=== PATIENT | male | born 1960 | race Caucasian/White ===

== ENCOUNTER 2019-06-04 12:24 | Emergency (ER) | payer OTHER ==
--- NOTE | 2019-06-04 13:07 | EDM.PDOC ---
ED HPI GENERAL MEDICAL PROBLEM - General Chief Complaint: Lower Extremity Injury/Pain Stated Complaint: R ANKLE INJURY Time Seen by Provider: 06/04/19 12:50 Source of Information: Reports: Patient History Limitations: Reports: No Limitations - History of Present Illness INITIAL COMMENTS - FREE TEXT/NARRATIVE: 58-year-old male with a history of significant right ankle and foot injury from an auger 2 years ago that needed reconstructive surgery, has been slowly improving but today after bumping his head on a beam and mis-stepping, he turned his right ankle and now is having significant right ankle pain. There is always some mild to moderate swelling. He wants to make sure there is no fracture. Onset: Sudden Duration: Hour(s): (Within the last hour) Location: Reports: Lower Extremity, Right Associated Symptoms: Reports: No Other Symptoms Right Ankle Pain Score (Numeric/FACES): 10 - Related Data Allergies Allergy/AdvReac Type Severity Reaction Status Date / Time Penicillins Allergy Cannot Verified 06/04/19 12:57 Remember voriconazole Allergy Chest Pain Verified 06/04/19 12:57 Home Meds: Home Meds NK [No Known Home Meds] 06/04/19 [History] Past Medical History HEENT History: Reports: Impaired Vision - Past Surgical History HEENT Surgical History: Reports: Tonsillectomy Musculoskeletal Surgical History: Reports: Other (See Below) Other Musculoskeletal Surgeries/Procedures:: ankle surgery after a auger accident to right ankle. Social & Family History - Tobacco Use Smoking Status *Q: Never Smoker - Caffeine Use Caffeine Use: Reports: Coffee - Recreational Drug Use Recreational Drug Use: No Review of Systems - Review of Systems Review Of Systems: See Below Eyes: Reports: No Symptoms Respiratory: Reports: No Symptoms Cardiovascular: Reports: No Symptoms Skin: Reports: Other (A small open wound on the distal anterior lower leg from past skin grafting is healing by secondary intention.) Neurological: Reports: Paresthesia (He does have some chronic numbness from his past injury to his foot) ED EXAM, GENERAL - Physical Exam Exam: See Below Exam Limited By: No Limitations General Appearance: Alert, No Apparent Distress (Patient is uncomfortable but not distressed) Head: Atraumatic Respiratory/Chest: No Respiratory Distress Extremities: Other (Exam is otherwise limited to the right lower extremity. He has significant discomfort with palpation of the right lower leg just above the ankle, the malleoli are nontender. He has a bandage over the lower leg due to the chronic small healing superficial skin ulcer. This was not removed.) Course - Vital Signs Last Recorded V/S: Last Vital Signs Temp 97.8 F 06/04/19 12:53 Pulse 75 06/04/19 12:53 Resp 18 06/04/19 12:53 BP 151/94 H 06/04/19 12:53 Pulse Ox 99 06/04/19 12:53 - Orders/Labs/Meds Orders: Active Orders 24 hr Category Date Time Status DME for Discharge [COMM] Stat Oth 06/04/19 14:31 Ordered - Re-Assessments/Exams Free Text/Narrative Re-Assessment/Exam: 06/04/19 14:28 An x-ray of the right lower leg and ankle was obtained and shows a spiral fracture of the fibula and tibia. The ankle mortise is intact, and the malleoli are not involved. He lives near [place], and would like [facility] to take care of this so I discussed the situation with Dr. Drew, orthopedist analytical consultant and he was very helpful. Patient will be placed in an orthopedic boot, nonweightbearing with crutches, and see Dr. Drew tomorrow at the orthopedic clinic at 12:00. Departure - Departure Time of Disposition: 14:42 Disposition: Home, Self-Care 01 Clinical Impression: Fracture of right tibia and fibula Qualifiers: Encounter type: initial encounter Fracture type: closed Qualified Code(s): S82.201A - Unspecified fracture of shaft of right tibia, initial encounter for closed fracture - Discharge Information Instructions: Tibial Fracture, Adult Referrals: PCP,None [Primary Care Provider] - Forms: ED Department Discharge Care Plan Goals: Keep boot on until recheck tomorrow, nonweightbearing at all times. Elevate foot when able and use anti-inflammatories for pain adding tramadol if needed. Dr. Drew will see you tomorrow at noon at the orthopedic clinic attached to the hospital in [place], call [phone] in the AM and inform them that Dr. Drew is expecting you at noon. Sepsis Event Note - Evaluation Sepsis Screening Result: No Definite Risk - Focused Exam Vital Signs: Vital Signs Temp Pulse Resp BP Pulse Ox 06/04/19 12:53 97.8 F 75 18 151/94 H 99 Date Exam was Performed: 06/04/19 Time Exam was Performed: 15:17 - My Orders Last 24 Hours: My Active Orders 06/04/19 14:31 DME for Discharge [COMM] Stat - Assessment/Plan Last 24 Hours: My Active Orders 06/04/19 14:31 DME for Discharge [COMM] Stat
--- NOTE | 2019-06-04 14:12 | CR ---
Ankle Min 3V Rt CLINICAL HISTORY: Trauma FINDINGS: The soft tissues are swollen. There is a comminuted fracture of the distal tibial diaphysis extending into the metaphysis. There is a nondisplaced comminuted fracture of the distal fibula. Ankle mortise is anatomic. There are some osteophytic changes. Patient has a calcaneal spur. There is been previous surgery in the lower calf. Impression: Comminuted fractures of the distal fibula and tibia
== END 2019-06-04 14:41 | disposition home or self-care (01) ==
LOC: JP.ED 12:24
DX: S82.831A Other fracture of upper and lower end of right fibula, initial encounter for closed fracture (principal); S82.301A Unspecified fracture of lower end of right tibia, initial encounter for closed fracture; X50.9XXA Other and unspecified overexertion or strenuous movements or postures, initial encounter; Z88.0 Allergy status to penicillin; Z88.1 Allergy status to other antibiotic agents
CPT/HCPCS: 73610-26-RT; 73610-RT; 99283-25